=== PATIENT | female | born 1930 | race Caucasian/White ===

== ENCOUNTER 2017-03-11 06:24 | Inpatient (IN) | payer MEDICARE ==
[~2017-03-11 06:24] MED LIST: Dexamethasone IV* 4 MG/ML 1 ML (4 MG) IV SLOW PU ONE; Famotidine IV* 10 MG/ML 2 ML (20 mg) IV ONE
[2017-03-11] MEDS ORDERED: Buffered Lidocaine 1% SYRIN* 5 ML/SYR SYRINGE ONE (06:29)
[2017-03-11] MEDS ORDERED: Dexamethasone IV* 4 MG/ML 1 ML (4 MG) ONE (06:29)
[2017-03-11] MEDS ORDERED: Famotidine IV* 10 MG/ML 2 ML (20 mg) ONE (06:29)
[2017-03-11] MEDS ORDERED: Clindamycin 900 MG IVPREMIX(* 900 MG/50 ML SDV IV ONE (06:29)
[2017-03-11] MEDS: Buffered Lidocaine 1% SYRIN* 5 ML/SYR SYRINGE INTRADERM ONE ×2 (06:42→06:48)
[2017-03-11] MEDS ORDERED: Bacitracin IV* 50,000 UNITS INJ ONE (07:13)
[2017-03-11] MEDS ORDERED: Thrombin 5,000 UNITS* 1 APPLIC KIT - topical use - TOPICAL ONE (07:13)
[2017-03-11] MEDS ORDERED: Lidocain 1% EPI 1:100,000 * 30 ML MDV ONE (07:13)
[2017-03-11] MEDS ORDERED: fentaNYL* 50 MCG/ML 2 ML VIAL (100 MCG VIAL) ONE ×2 (07:26→10:51)
[2017-03-11] MEDS ORDERED: Lidocaine 1% INJ* 10 MG/ML 30 ML SDV ONE (07:28)
[2017-03-11] MEDS ORDERED: KETAMINE HCL* 50 MG/ML 10 ML VIAL ONE (07:28)
[2017-03-11] MEDS ORDERED: Propofol* 10 MG/ML 20 ML BTL IV PUSH ONE (09:03)
[2017-03-11] MEDS ORDERED: Ondansetron INJ* 2 MG/ML VIAL ONE (09:03)
[2017-03-11] MEDS ORDERED: Succinylcholine* 20 MG/ML 10 ML VIAL ONE (09:03)
[2017-03-11] MEDS ORDERED: Phenylephrine IV* 40 MCG/ML 10 ML SYRINGE ONE (09:11)
[2017-03-11] MEDS ORDERED: HYDROmorphone* 1 MG/ML 1 ML SYR IV PRN (09:16)
[2017-03-11] MEDS ORDERED: fentaNYL* 50 MCG/ML 2 ML VIAL (100 MCG VIAL) IV PRN (09:16)
[2017-03-11] MEDS ORDERED: DiMENhydriNATE IV* 50 MG/ML VIAL IV PUSH PRN (09:16)
[2017-03-11] MEDS ORDERED: Ondansetron INJ* 2 MG/ML VIAL IV PRN (10:12)
[2017-03-11] MEDS ORDERED: Ketorolac INJ* 30 MG/ML 1 ML VIAL IV PRN (10:33)
[2017-03-11] MEDS ORDERED: Ketorolac INJ* 30 MG/ML 1 ML VIAL ONE (10:36)
--- NOTE | 2017-03-11 11:40 | RAD ---
HISTORY: Localization during spinal surgery COMPARISONS: MRI dated January 28, 2017 VIEWS: Portable lateral intraoperative view of the lumbar spine performed at 7:36 AM FINDINGS: A metallic probe is noted opposite of the L3 pedicle, counting from L5 as the last lumbar type vertebral body IMPRESSION: LIMITED STUDY FOR THE PURPOSES OF LOCALIZATION DURING SPINAL SURGERY
[2017-03-11] MEDS: Latanoprost 0.005%* 2.5 ml BTL BOTH EYES SCH (19:46)
[2017-03-11] MEDS: Docusate CAP* 100 MG PO SCH (19:46)
[2017-03-11] MEDS: HYDROcodone/ACETAMIN 5-325 MG* 1 TAB PO PRN (21:15)
--- NOTE | 2017-03-12 00:31 | OP ---
OPERATIVE REPORT: DATE OF OPERATION: 03/11/17 DATE OF : 34 SURGEON: Jeremy Silva MD MOLD SHAKER: GALE Cabrera ANESTHESIA: General. 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 POST-OP DIAGNOSIS: OPERATIVE PROCEDURE: Lumbar decompressive laminectomy, L3-4 with excision of synovial cyst, L3-4 on the right with microdissection. DESCRIPTION OF PROCEDURE: After satisfactory general anesthesia was obtained, the patient was place d on the operating table in the prone position with the chest supported on the Jose Francisco frame and the back slightly flexed. The lumbar region was then clipped, prepped and draped in a sterile manner fo r lumbar laminectomy and skin incision outlined from L3 to L5. This incision was infiltrated with 1 % Xylocaine with epinephrine after which it was turned down sharply to the level of the lumbar fasci a. The fascia was divided along the spinous processes of L3 and L4, and the paraspinal musculature stripped away from these posterior elements using the periosteal elevator and monopolar cautery. An intraoperative x-ray was obtained verifying localization of the L3 pedicle. Additional inferior ex posure was obtained until the L3-4 interspace could be visualized. There was no remarked bony hyper trophy of the posterior elements at this level. The decompression was carried out initially using L eksell rongeurs as well as a Midas Wilmer drill to thin out the inferior aspect of the L3 spinous proce ss and over grown facet complex as well as the superior aspect of L4. Utilizing Kerrison rongeur, t he decompression was carried out superiorly until the attachment of the ligamentum flavum was taken down. The initial decompression was done on the left side where normal dura was noted. On the righ t side, there was noted to be a large synovial cyst extending the entire length of the decompression . At this point of procedure, the operating microscope was brought into the field and the remainder of the dissection was done utilizing microdissection. Utilizing microdissection, a plane was caref ully developed between the dura and synovial cyst tissue. Multiple fragments of synovial cyst were sent for pathology. The cyst was decompressed using a combination of curettes, gentle suction, and pituitary forceps. Ultimately, the entire extent of the cyst was removed. At the conclusion of dec ompression, both L4 nerve roots were noted to be free in their course. There was the development of a very small tear along the lateral aspect of the root sleeve on the right side. A piece of Gelfoa m was placed over this area and DuraSeal tissue adhesive placed. The fascia was then reapproximated with 0 Vicryl suture tightly. A drain was placed in the space above the fascia and tunneled out tow ards the right side. The subcutaneous tissues were then reapproximated with 3-0 Vicryl suture, and the skin closed with skin clips. The estimated blood loss was 100 cc. The final sponge, padding, a nd needle counts were correct. The patient was taken to the recovery room extubated and in stable c ondition. [id number]/[facility] #: [id number]
[2017-03-12] MEDS: Levothyroxine TAB* 88 MCG TAB PO SCH (05:59)
[2017-03-12] MEDS: Acetaminophen TAB* 325 MG PO PRN ×3 (07:25→19:39)
[2017-03-12] MEDS: Spironolactone TAB* 25 MG PO SCH (07:26)
[2017-03-12] MEDS: Docusate CAP* 100 MG PO SCH ×2 (07:26→20:54)
[2017-03-12] MEDS: Lisinopril TAB* 5 MG PO SCH (07:28)
--- NOTE | 2017-03-12 07:39 | PN ---
Progress Note - Progress Note SOAP: Subjective: []POD # 1 Pre op leg pain relieved No complaints of headache Moderate incisional pain Objective: []Dressing dry Neuro intact Assessment: []Satis post op course Plan: []Cont to monitor drain output
[2017-03-12] MEDS: HYDROcodone/ACETAMIN 5-325 MG* 1 TAB PO PRN ×2 (07:41→13:59)
[2017-03-12] MEDS: Latanoprost 0.005%* 2.5 ml BTL BOTH EYES SCH (20:54)
[2017-03-13] MEDS: HYDROcodone/ACETAMIN 5-325 MG* 1 TAB PO PRN ×2 (01:10→07:41)
[2017-03-13] MEDS: Acetaminophen TAB* 325 MG PO PRN ×2 (01:11→07:41)
[2017-03-13] MEDS: Levothyroxine TAB* 88 MCG TAB PO SCH (05:36)
--- NOTE | 2017-03-13 07:52 | PN ---
Progress Note - Progress Note SOAP: Subjective: [S/p decompressive lumbar lamminectomy and excision of synovial cyst L3-4. POD #2. Feeling well this morning, low back incisional pain improving. Pre-op lower extremity symptoms improving. Ambulating independently. Eating and drinking without difficulty. Denies lower extremity numbness, and tingling. No headache. ] Objective: [ Vital Signs: Temp Pulse Resp BP Pulse Ox 98.2 F 77 18 97/39 98 03/13/17 04:13 03/13/17 04:13 03/13/17 07:45 03/13/17 04:13 03/13/17 07:45 General: Alert and oriented. No distress. Neuro: Motor and sensory intact. Extremities: Full ROM Incision: Intact with annika. No swelling or infection. MELVA drain removed today. ] Assessment: [Satisfactory post-op] Plan: [1. Discharge home today. 2. Discharge instructions discussed with the patient. ]
[2017-03-13 09:03] VITALS: BP 107/41
[2017-03-13] MEDS: Docusate CAP* 100 MG PO SCH (09:06)
[2017-03-13] MEDS: Lisinopril TAB* 5 MG PO SCH (09:06)
[2017-03-13] MEDS: Spironolactone TAB* 25 MG PO SCH (09:06)
--- NOTE | 2017-03-15 05:37 | DS ---
DISCHARGE SUMMARY: DATE OF ADMISSION: 03/11/17 DATE OF DISCHARGE: 03/13/17 DISCHARGE DIAGNOSES: 1. Lumbar spinal stenosis and synovial cyst, L3-4. 2. Hypertension. 3. History of mitral valve repair, 2011. 4. Hypothyroidism. SPECIAL PROCEDURE: Decompressive lumbar laminectomy with synovial cyst excision, L3-4. HOSPITAL COURSE: This 86-year-old female was seen in the office with lumbar radiculopathy consisten t with stenosis and presence of synovial cyst at L3-4. She failed to improve with several months of conservative treatment and admitted at this time for elective surgical treatment. On the day of ad mission, she was taken to surgery, where under general anesthesia a decompressive lumbar laminectomy with excision of synovial cyst at L3-4 operation was carried out. Postoperatively, she was feeling well and she was ambulating independently. She was eating, drinking, and voiding without difficult y. The pain is well controlled with oral pain medications. MELVA wound drain was removed on postop da y #2. She was discharged home on the second postoperative day to the care of the family. The preop erative symptoms in the bilateral lower extremities were improving. DISCHARGE INSTRUCTIONS: Including wound care and activity level were discussed with the patient and provided. She will be seen in the office in 7 to 10 days for followup and staple removal. DISCHARGE MEDICATIONS: Hydrocodone/acetaminophen 5/325 mg 2 tabs by mouth every 4 hours as needed f or pain. GALE MORALES [id number]/[facility] #: [id number]
== END 2017-03-13 10:33 | disposition home or self-care (01) | DRG 520 ==
LOC: OR 06:24 → SSU 07:39 → OBSVTOIN 03-12 07:39
PROVIDERS: ADMIT Neurological Surgery; ATTEND Neurological Surgery
PROC: 00BY0ZZ Excision of Lumbar Spinal Cord, Open Approach (ICD-10-PCS; 2017-03-11)
PROC: 01NB0ZZ Release Lumbar Nerve, Open Approach (ICD-10-PCS; principal; 2017-03-11 07:45)
DX: M48.06 Spinal stenosis, lumbar region (principal); I27.2 Other secondary pulmonary hypertension; I34.0 Nonrheumatic mitral (valve) insufficiency; M54.16 Radiculopathy, lumbar region; M81.0 Age-related osteoporosis without current pathological fracture; M16.10 Unilateral primary osteoarthritis, unspecified hip; I10 Essential (primary) hypertension; M71.38 Other bursal cyst, other site; E03.9 Hypothyroidism, unspecified; H40.9 Unspecified glaucoma; I07.1 Rheumatic tricuspid insufficiency; S34.21XA Injury of nerve root of lumbar spine, initial encounter; X58.XXXA Exposure to other specified factors, initial encounter; Y92.234 Operating room of hospital as the place of occurrence of the external cause; I37.1 Nonrheumatic pulmonary valve insufficiency; Z82.49 Family history of ischemic heart disease and other diseases of the circulatory system; Z88.0 Allergy status to penicillin; Z87.440 Personal history of urinary (tract) infections; Z98.49 Cataract extraction status, unspecified eye; Z85.828 Personal history of other malignant neoplasm of skin; Z90.710 Acquired absence of both cervix and uterus
CPT/HCPCS: 72100; 88304; A9270-GY; G0378; J0330; J1100; J1885; J2001; J2405; J2704; J3010

== ENCOUNTER 2022-07-22 18:15 | Inpatient (IN) ==
[2022-07-22] MEDS ORDERED: Ondansetron 4 mg VIAL 2 MG/ML 2 ml VIAL IV ONE (18:58)
[2022-07-22 19:08] LABS: ABS Lymphocytes 0.9 10^3/ul (1.0-4.8); ABS Monocytes 0.9 10^3/ul (0-0.8); ABS Neutrophils 10.6 10^3/ul (1.5-7.7); Eosinophil % 0.3 %; Hematocrit 36 % (35-47); Hemoglobin 11.7 g/dL (12.0-16.0); Lymphocyte % 6.9 %; Mean Corpuscular HGB Conc 33 g/dL (31-36); Mean Corpuscular Hemoglobin 32 pg (27-31); Mean Corpuscular Volume 96 fL (80-97); Mean Platelet Volume 8.6 fL (7.4-10.4); Platelet Count 197 10^3/uL (150-450); Red Blood Count 3.72 10^6 /uL (3.70-4.87); Red Cell Distribution Width 14 % (10-15); White Blood Count 12.5 10^3/uL (3.5-10.8)
[2022-07-22 19:26] LABS: ALT 17 U/L (7-52); Albumin/Globulin Ratio 1.4 (1-3); Alkaline Phosphatase 58 U/L (35-149); Blood Urea Nitrogen 28 mg/dL (6-24); CO2 Carbon Dioxide 25 mmol/L (22-32); Chloride 100 mmol/L (101-111); Globulin 2.8 g/dL (2-4); Glucose 134 mg/dL (70-100); Sodium 133 mmol/L (135-145); Total Protein 6.8 g/dL (6.4-8.9); eGFR CKD-EPI 59.5 (>60)
[2022-07-22 19:28] LABS: Anion Gap 8 mmol/L (2-11)
[2022-07-22] MEDS ORDERED: Ondansetron 4 mg VIAL 2 MG/ML 2 ml VIAL IV PRN (21:14)
[2022-07-22] MEDS ORDERED: Heparin 5000 UNITS/ML 1 mL VIAL SUBCUT ONE (21:16)
[2022-07-22] MEDS: Acetaminophen IV 1 GM/100ML 1,000 MG/100 ML BAG IV SCH (22:04)
[2022-07-23] MEDS ORDERED: Metoclopramide 5 MG/ML VIAL (10 mg) IV PRN (00:17)
[2022-07-23 01:21] LABS: Urine Appearance Cloudy; Urine Bilirubin Negative (Negative); Urine Blood 1+ (Negative); Urine Color Yellow; Urine Glucose Negative (Negative); Urine Ketones 1+ (Negative); Urine Nitrite Negative (Negative); Urine Protein 1+(30 mg/dL) (Negative); Urine Specific Gravity 1.018 (1.002-1.030); Urine Urobilinogen Negative (Negative)
[2022-07-23 01:23] LABS: Urine Bacteria Absent (Absent); Urine Red Blood Cell 3+(>10/hpf) (Absent); Urine White Blood Cell Trace(0-5/hpf) (Absent)
[2022-07-23] MEDS: Acetaminophen IV 1 GM/100ML 1,000 MG/100 ML BAG IV SCH ×4 (02:55→23:07)
[2022-07-23 04:59] LABS: ABS Lymphocytes 0.8 10^3/ul (1.0-4.8); ABS Monocytes 0.9 10^3/ul (0-0.8); ABS Neutrophils 7.7 10^3/ul (1.5-7.7); Eosinophil % 0.1 %; Hematocrit 33 % (35-47); Hemoglobin 10.6 g/dL (12.0-16.0); Lymphocyte % 8.7 %; Mean Corpuscular HGB Conc 32 g/dL (31-36); Mean Corpuscular Hemoglobin 31 pg (27-31); Mean Corpuscular Volume 96 fL (80-97); Mean Platelet Volume 7.9 fL (7.4-10.4); Platelet Count 163 10^3/uL (150-450); Red Blood Count 3.41 10^6 /uL (3.70-4.87); Red Cell Distribution Width 14 % (10-15); White Blood Count 9.5 10^3/uL (3.5-10.8)
[2022-07-23 05:05] LABS: INR 1.05 (0.89-1.11)
[2022-07-23 05:37] LABS: Calcium 8.2 mg/dL (8.6-10.3); Magnesium 1.9 mg/dL (1.9-2.7); Potassium 4.9 mmol/L (3.5-5.0)
[2022-07-23 05:42] LABS: eGFR CKD-EPI 58.8 (>60)
[2022-07-23] MEDS: Latanoprost 0.005% 2.5 ml BTL BOTH EYES SCH ×2 (06:44→23:08)
[2022-07-23] MEDS ORDERED: Buffered Lidocaine 1% SYRIN 1 ml INTRADERM ONE (08:28)
[2022-07-23] MEDS ORDERED: Polyethylene Glycol 3350 17 GM PACKET PO PRN (11:32)
[2022-07-23] MEDS: Lactated Ringers 1000 ml BAG 1,000 ML IV SCH (11:34)
[2022-07-23] MEDS ORDERED: ceFAZolin 2 GM in NS PREMIX 2 GM/100 ML BAG IVPB ONE (15:32)
[2022-07-23] MEDS ORDERED: ROPIVACAINE 5 MG/ML 30 ML BTL (0.5%) ONE (16:13)
[2022-07-23] MEDS ORDERED: fentaNYL 100 mcg/2 ml 50 MCG/ML VIAL ONE (16:33)
[2022-07-23] MEDS ORDERED: Phenylephrine IV 10 MG/ML 1 ml VIAL ONE (16:38)
[2022-07-23] MEDS ORDERED: Propofol 10 MG/ML 20 ML BTL ONE (16:41)
[2022-07-23] MEDS ORDERED: Lidocaine 2% PF 5 ML VIAL ONE (16:43)
[2022-07-23] MEDS ORDERED: Ketamine HCL 50 mg/ml 10 ml VIAL (500 MG) ONE (17:08)
[2022-07-23] MEDS ORDERED: Naloxone 0.4 mg VIAL 0.4 mg/ml 1 ml VIAL IV PRN (19:36)
[2022-07-23] MEDS ORDERED: fentaNYL 100 mcg/2 ml 50 MCG/ML VIAL IV PRN (19:36)
[2022-07-23] MEDS ORDERED: HYDROcodone/ACETAMIN 5/325 mg TAB PO PRN (19:36)
[2022-07-23] MEDS ORDERED: Ondansetron 4 mg VIAL 2 MG/ML 2 ml VIAL ONE (19:39)
[2022-07-23] MEDS: Senna TAB 8.6 mg TAB PO PRN (22:07)
[2022-07-24] MEDS: Clindamycin 600 MG/D5W BAG IV SCH ×3 (01:50→17:24)
[2022-07-24] MEDS: Acetaminophen IV 1 GM/100ML 1,000 MG/100 ML BAG IV SCH (03:25)
[2022-07-24] MEDS: Lactated Ringers 1000 ml BAG 1,000 ML IV SCH ×2 (05:18→14:25)
[2022-07-24] MEDS ORDERED: Lactated Ringers 1000 ml BAG 1,000 ML IV ONE ×2 (08:09→09:56)
[2022-07-24 09:09] LABS: Hematocrit 25 % (35-47); Hemoglobin 7.9 g/dL (12.0-16.0)
[2022-07-24] MEDS ORDERED: Iodixanol (CONTRAST) 320 MG/ML 100 ML SDV IV ONE (11:41)
[2022-07-24 14:24] LABS: Hematocrit 22 % (35-47)
[2022-07-24 20:10] LABS: Hematocrit 22 % (35-47); Hemoglobin 7.3 g/dL (12.0-16.0)
[2022-07-24] MEDS: Latanoprost 0.005% 2.5 ml BTL BOTH EYES SCH (20:42)
[2022-07-24] MEDS: Senna TAB 8.6 mg TAB PO PRN (20:44)
[2022-07-25] MEDS: Lactated Ringers 1000 ml BAG 1,000 ML IV SCH ×2 (01:53→12:31)
[2022-07-25 06:12] LABS: Hematocrit 22 % (35-47); Hemoglobin 7.2 g/dL (12.0-16.0); Mean Corpuscular HGB Conc 33 g/dL (31-36); Mean Corpuscular Hemoglobin 31 pg (27-31); Mean Corpuscular Volume 95 fL (80-97); Mean Platelet Volume 8.1 fL (7.4-10.4); Platelet Count 132 10^3/uL (150-450); Red Blood Count 2.29 10^6 /uL (3.70-4.87); Red Cell Distribution Width 14 % (10-15); White Blood Count 11.5 10^3/uL (3.5-10.8)
[2022-07-25 06:53] LABS: Calcium 7.5 mg/dL (8.6-10.3); Potassium 4.9 mmol/L (3.5-5.0); eGFR CKD-EPI 62.8 (>60)
[2022-07-25] MEDS ORDERED: Glycerin ADULT 2.4 gm SUPP PR ONE (11:24)
[2022-07-25] MEDS ORDERED: Metoclopramide 5 MG/ML VIAL (10 mg) IV PRN (11:28)
[2022-07-25 12:04] LABS: ABS Lymphocytes 1.1 10^3/ul (1.0-4.8); ABS Monocytes 1.9 10^3/ul (0-0.8); ABS Neutrophils 8.5 10^3/ul (1.5-7.7); Eosinophil % 0.1 %; Lymphocyte % 9.8 %
[2022-07-25 17:01] LABS: Hematocrit 20 % (35-47); Hemoglobin 6.5 g/dL (12.0-16.0)
[2022-07-25] MEDS ORDERED: Magnesium CITRATE LIQ 300 ML BTL PO ONE (17:15)
[2022-07-25] MEDS ORDERED: Magnesium Hydroxide LIQ 30 ML UDC PO ONE (18:58)
[2022-07-25] MEDS ORDERED: Senna TAB 8.6 mg TAB PO SCH (21:00)
[2022-07-25 21:58] LABS: Hematocrit 23 % (35-47); Hemoglobin 7.5 g/dL (12.0-16.0)
[2022-07-25] MEDS: Latanoprost 0.005% 2.5 ml BTL BOTH EYES SCH (22:06)
[2022-07-26 01:19] LABS: Urine Appearance Clear; Urine Bilirubin Negative (Negative); Urine Blood Negative (Negative); Urine Color Amber; Urine Glucose Negative (Negative); Urine Ketones Negative (Negative); Urine Nitrite Negative (Negative); Urine Protein 1+(30 mg/dL) (Negative); Urine Specific Gravity 1.033 (1.002-1.030); Urine Urobilinogen Negative (Negative)
[2022-07-26 01:25] LABS: Urine Bacteria Absent (Absent); Urine Red Blood Cell Trace(0-2/hpf) (Absent); Urine Squamous Epithelial Cell Present (Absent); Urine White Blood Cell 1+(6-10/hpf) (Absent)
[2022-07-26] MEDS: Lactated Ringers 1000 ml BAG 1,000 ML IV SCH (03:20)
[2022-07-26 08:12] LABS: Hematocrit 21 % (35-47); Hemoglobin 7.2 g/dL (12.0-16.0); Mean Corpuscular HGB Conc 34 g/dL (31-36); Mean Corpuscular Hemoglobin 31 pg (27-31); Mean Corpuscular Volume 92 fL (80-97); Mean Platelet Volume 8.2 fL (7.4-10.4); Platelet Count 133 10^3/uL (150-450); Red Blood Count 2.33 10^6 /uL (3.70-4.87); Red Cell Distribution Width 15 % (10-15); White Blood Count 9.6 10^3/uL (3.5-10.8)
[2022-07-26 08:55] LABS: Calcium 7.1 mg/dL (8.6-10.3); eGFR CKD-EPI 57.3 (>60)
[2022-07-26] MEDS ORDERED: Polyethylene Glycol 3350 17 GM PACKET PO SCH (09:00)
[2022-07-26 09:04] LABS: Potassium 5.3 mmol/L (3.5-5.0)
[2022-07-26 12:42] VITALS: BP 107/66
[2022-07-26] MEDS ORDERED: Sulfur Hexaflouride MICROSPHR 25 MG VIAL ONE (14:59)
[2022-07-26] MEDS ORDERED: SODIUM ZIRCONIUM CYCLOSILICATE 10 GM PACKET PO SCH (15:00)
== END 2022-07-26 17:15 | DRG 521 ==
LOC: ED 18:15 → EDHOLD 21:47 → SSU 07-23 20:03
PROVIDERS: ADMIT Internal Medicine; ATTEND Internal Medicine

== ENCOUNTER 2022-07-26 15:26 | Inpatient (IN) ==
[2022-07-26] MEDS ORDERED: Senna TAB 8.6 mg TAB PO PRN (18:21)
[2022-07-26] MEDS ORDERED: SODIUM ZIRCONIUM CYCLOSILICATE 5 GM PACKET PO ONE (20:00)
[2022-07-26] MEDS: Latanoprost 0.005% 2.5 ml BTL BOTH EYES SCH (21:53)
[2022-07-27 09:39] LABS: ABS Eosinophils 0.2 10^3/ul (0-0.6); ABS Lymphocytes 0.8 10^3/ul (1.0-4.8); ABS Monocytes 1.1 10^3/ul (0-0.8); ABS Neutrophils 5.3 10^3/ul (1.5-7.7); Eosinophil % 2.5 %; Hematocrit 22 % (35-47); Hemoglobin 7.5 g/dL (12.0-16.0); Lymphocyte % 11.1 %; Mean Corpuscular HGB Conc 35 g/dL (31-36); Mean Corpuscular Hemoglobin 32 pg (27-31); Mean Corpuscular Volume 93 fL (80-97); Mean Platelet Volume 7.8 fL (7.4-10.4); Platelet Count 186 10^3/uL (150-450); Red Blood Count 2.31 10^6 /uL (3.70-4.87); Red Cell Distribution Width 15 % (10-15); White Blood Count 7.4 10^3/uL (3.5-10.8)
[2022-07-27 10:30] LABS: Calcium 7.3 mg/dL (8.6-10.3); Potassium 4.4 mmol/L (3.5-5.0); eGFR CKD-EPI 65.4 (>60)
[2022-07-27] MEDS: Benzocaine/Menthol LOZ PO PRN (10:35)
[2022-07-27] MEDS: Magnesium Hydroxide LIQ 30 ML UDC PO PRN (10:35)
[2022-07-27] MEDS ORDERED: Calcium Carb (TUMS) 500 mg CHEW TAB PO ONE (16:15)
[2022-07-27] MEDS: Latanoprost 0.005% 2.5 ml BTL BOTH EYES SCH (20:15)
[2022-07-27] MEDS: Calcium Carb (TUMS) 500 mg CHEW TAB PO PRN (20:15)
[2022-07-27] MEDS: Senna TAB 8.6 mg TAB PO SCH (20:15)
[2022-07-28] MEDS: Polyethylene Glycol 3350 17 GM PACKET PO SCH (09:42)
[2022-07-28] MEDS: Calcium Carb (TUMS) 500 mg CHEW TAB PO PRN ×4 (09:45→23:42)
[2022-07-28] MEDS: Magnesium Hydroxide LIQ 30 ML UDC PO PRN (16:29)
[2022-07-28] MEDS: Latanoprost 0.005% 2.5 ml BTL BOTH EYES SCH (19:57)
[2022-07-28] MEDS: Senna TAB 8.6 mg TAB PO SCH (19:58)
[2022-07-29] MEDS: Calcium Carb (TUMS) 500 mg CHEW TAB PO PRN (04:14)
[2022-07-29 06:42] LABS: ABS Eosinophils 0.1 10^3/ul (0-0.6); ABS Lymphocytes 0.9 10^3/ul (1.0-4.8); ABS Monocytes 1.4 10^3/ul (0-0.8); ABS Neutrophils 6.3 10^3/ul (1.5-7.7); Eosinophil % 0.8 %; Hematocrit 20 % (35-47); Hemoglobin 6.7 g/dL (12.0-16.0); Lymphocyte % 10.5 %; Mean Corpuscular HGB Conc 33 g/dL (31-36); Mean Corpuscular Hemoglobin 31 pg (27-31); Mean Corpuscular Volume 94 fL (80-97); Mean Platelet Volume 7.1 fL (7.4-10.4); Platelet Count 254 10^3/uL (150-450); Red Blood Count 2.16 10^6 /uL (3.70-4.87); Red Cell Distribution Width 14 % (10-15); White Blood Count 8.8 10^3/uL (3.5-10.8)
[2022-07-29 07:12] LABS: Albumin 2.9 g/dL (3.2-5.2); Albumin/Globulin Ratio 1.3 (1-3); Calcium 7.6 mg/dL (8.6-10.3); Globulin 2.2 g/dL (2-4); Potassium 4.9 mmol/L (3.5-5.0); Total Bilirubin 1.5 mg/dL (0.2-1.0); Total Protein 5.1 g/dL (6.4-8.9); eGFR CKD-EPI 83.5 (>60)
[2022-07-29] MEDS: Polyethylene Glycol 3350 17 GM PACKET PO SCH (09:45)
[2022-07-29] MEDS: Senna TAB 8.6 mg TAB PO SCH (21:58)
[2022-07-29] MEDS: Latanoprost 0.005% 2.5 ml BTL BOTH EYES SCH (22:09)
[2022-07-30] MEDS: Calcium Carb (TUMS) 500 mg CHEW TAB PO PRN (03:00)
[2022-07-30] MEDS: Polyethylene Glycol 3350 17 GM PACKET PO SCH (08:06)
[2022-07-30] MEDS: Senna TAB 8.6 mg TAB PO SCH (20:53)
[2022-07-30] MEDS: Latanoprost 0.005% 2.5 ml BTL BOTH EYES SCH (20:53)
[2022-07-31 07:18] LABS: ABS Basophils 0.1 10^3/ul (0-0.2); ABS Eosinophils 0.2 10^3/ul (0-0.6); ABS Monocytes 1.4 10^3/ul (0-0.8); Eosinophil % 1.8 %; Hematocrit 23 % (35-47); Hemoglobin 7.6 g/dL (12.0-16.0); Lymphocyte % 8.7 %; Mean Corpuscular HGB Conc 33 g/dL (31-36); Mean Corpuscular Hemoglobin 31 pg (27-31); Mean Corpuscular Volume 94 fL (80-97); Mean Platelet Volume 6.7 fL (7.4-10.4); Platelet Count 334 10^3/uL (150-450); Red Blood Count 2.48 10^6 /uL (3.70-4.87); Red Cell Distribution Width 15 % (10-15); White Blood Count 11.7 10^3/uL (3.5-10.8)
[2022-07-31] MEDS: Polyethylene Glycol 3350 17 GM PACKET PO SCH (08:39)
[2022-07-31 09:37] LABS: ALT 22 U/L (7-52); AST 27 U/L (13-39); Albumin 2.9 g/dL (3.2-5.2); Albumin/Globulin Ratio 1.2 (1-3); Alkaline Phosphatase 65 U/L (35-149); Anion Gap 5 mmol/L (2-11); Blood Urea Nitrogen 17 mg/dL (6-24); CO2 Carbon Dioxide 26 mmol/L (22-32); Calcium 7.3 mg/dL (8.6-10.3); Chloride 98 mmol/L (101-111); Globulin 2.4 g/dL (2-4); Glucose 99 mg/dL (70-100); Potassium 4.3 mmol/L (3.5-5.0); Sodium 129 mmol/L (135-145); Total Protein 5.3 g/dL (6.4-8.9); eGFR CKD-EPI 83.5 (>60)
[2022-07-31] MEDS: Enoxaparin 30 MG/0.3 ML SYR SUBCUT SCH (10:09)
[2022-07-31 10:19] LABS: Indirect Bilirubin 1.3 mg/dL (0.3-1.0)
[2022-07-31 13:29] LABS: Urine Appearance Turbid; Urine Bilirubin Negative (Negative); Urine Blood 1+ (Negative); Urine Color Amber; Urine Glucose Negative (Negative); Urine Ketones Negative (Negative); Urine Nitrite Positive (Negative); Urine Protein 1+(30 mg/dL) (Negative); Urine Specific Gravity 1.009 (1.002-1.030); Urine Urobilinogen Negative (Negative)
[2022-07-31 13:37] LABS: Urine Bacteria 1+ (Absent); Urine Red Blood Cell 1+(3-5/hpf) (Absent); Urine Transitional Epithelial Present (Absent); Urine White Blood Cell 3+(>20/hpf) (Absent)
[2022-07-31] MEDS ORDERED: Furosemide 20 mg/2 ml IV VIAL IV SLOW PU ONE ×2 (14:13→14:19)
[2022-07-31] MEDS: cefTRIAXone 1 gm/50 mL D5W 1 GM/50 ML BAG IV SCH (16:15)
[2022-07-31 16:17] LABS: Corrected Retic Count 2.2 % (0.5-1.5); Hematocrit for Retic CNT 24 % (35-47); Immature Retic Fraction 0.61
[2022-07-31 17:24] LABS: Urine Osmo 275 mOsm/kg (150-1150)
[2022-07-31 18:16] LABS: % Iron Saturation 15 % (15-55); Iron 36 ug/dL (50-212); Total Iron Binding Capacity 244 mcg/dL (250-450); Transferrin 174 mg/dL (203-362); Unsaturated Iron Binding 208 ug/dL
[2022-07-31 18:35] LABS: Folate > 20.00 ng/mL (5.90-24.80)
[2022-07-31 18:36] LABS: Vitamin B12 1414 pg/mL (180-914)
[2022-07-31] MEDS: Senna TAB 8.6 mg TAB PO SCH (20:47)
[2022-07-31] MEDS: Latanoprost 0.005% 2.5 ml BTL BOTH EYES SCH (20:53)
[2022-08-01 06:11] LABS: ABS Eosinophils 0.1 10^3/ul (0-0.6); ABS Monocytes 1.4 10^3/ul (0-0.8); Eosinophil % 1.1 %; Hematocrit 22 % (35-47); Hemoglobin 7.2 g/dL (12.0-16.0); Lymphocyte % 8.6 %; Mean Corpuscular HGB Conc 32 g/dL (31-36); Mean Corpuscular Hemoglobin 30 pg (27-31); Mean Corpuscular Volume 93 fL (80-97); Mean Platelet Volume 6.4 fL (7.4-10.4); Platelet Count 365 10^3/uL (150-450); Red Blood Count 2.39 10^6 /uL (3.70-4.87); Red Cell Distribution Width 15 % (10-15); White Blood Count 11.6 10^3/uL (3.5-10.8)
[2022-08-01 06:51] LABS: Potassium 4.4 mmol/L (3.5-5.0); eGFR CKD-EPI 85.7 (>60)
[2022-08-01 07:06] LABS: TSH Ultra Thyroid Stim Horm 5.37 mcIU/mL (0.34-5.60)
[2022-08-01 08:39] LABS: Direct Bilirubin 0.3 mg/dL (0.03-0.18); Indirect Bilirubin 0.9 mg/dL (0.3-1.0); Total Bilirubin 1.2 mg/dL (0.2-1.0)
[2022-08-01] MEDS: Polyethylene Glycol 3350 17 GM PACKET PO SCH (09:03)
[2022-08-01] MEDS: Enoxaparin 30 MG/0.3 ML SYR SUBCUT SCH (09:05)
[2022-08-01] MEDS: Calcium/Vitamin D TAB 250/125 TAB PO SCH ×2 (09:40→19:54)
[2022-08-01] MEDS ORDERED: Dextran 70/Hypromellose Tears Eye Drops 15 ml BTL (for Artificials Tears) BOTH EYES PRN (13:25)
[2022-08-01] MEDS: Iron Sucrose 200 MG in NS 0.9% 100 ml BAG 100 ML IVPB SCH (14:28)
[2022-08-01] MEDS: Benzocaine/Menthol LOZ PO PRN (15:13)
[2022-08-01] MEDS: cefTRIAXone 1 gm/50 mL D5W 1 GM/50 ML BAG IV SCH (15:55)
[2022-08-01] MEDS ORDERED: SYSTANE ULTRA EYE BOTH EYES PRN (16:00)
[2022-08-01] MEDS ORDERED: Furosemide 20 mg/2 ml IV VIAL IV SLOW PU ONE (16:18)
[2022-08-01] MEDS: Senna TAB 8.6 mg TAB PO SCH (19:54)
[2022-08-01] MEDS: Latanoprost 0.005% 2.5 ml BTL BOTH EYES SCH (19:55)
[2022-08-02 06:47] LABS: ABS Basophils 0.1 10^3/ul (0-0.2); ABS Eosinophils 0.2 10^3/ul (0-0.6); ABS Monocytes 1.3 10^3/ul (0-0.8); ABS Neutrophils 6.4 10^3/ul (1.5-7.7); Eosinophil % 2.3 %; Hematocrit 22 % (35-47); Hemoglobin 7.4 g/dL (12.0-16.0); Lymphocyte % 11.1 %; Mean Corpuscular HGB Conc 34 g/dL (31-36); Mean Corpuscular Hemoglobin 32 pg (27-31); Mean Corpuscular Volume 93 fL (80-97); Mean Platelet Volume 6.2 fL (7.4-10.4); Nucleated Red Blood Cells % 0.1; Platelet Count 400 10^3/uL (150-450); Red Blood Count 2.33 10^6 /uL (3.70-4.87); Red Cell Distribution Width 15 % (10-15)
[2022-08-02] MEDS: Calcium/Vitamin D TAB 250/125 TAB PO SCH ×2 (07:35→21:01)
[2022-08-02] MEDS: Polyethylene Glycol 3350 17 GM PACKET PO SCH (07:35)
[2022-08-02 07:44] LABS: Calcium 7.2 mg/dL (8.6-10.3); Potassium 4.5 mmol/L (3.5-5.0); eGFR CKD-EPI 83.8 (>60)
[2022-08-02] MEDS: Enoxaparin 30 MG/0.3 ML SYR SUBCUT SCH (09:15)
[2022-08-02] MEDS: Iron Sucrose 200 MG in NS 0.9% 100 ml BAG 100 ML IVPB SCH (10:46)
[2022-08-02] MEDS: cefTRIAXone 1 gm/50 mL D5W 1 GM/50 ML BAG IV SCH (16:37)
[2022-08-02] MEDS: Magnesium Hydroxide LIQ 30 ML UDC PO PRN (19:31)
[2022-08-02] MEDS: Latanoprost 0.005% 2.5 ml BTL BOTH EYES SCH (21:01)
[2022-08-02] MEDS: Senna TAB 8.6 mg TAB PO SCH (21:01)
[2022-08-03] MEDS: Polyethylene Glycol 3350 17 GM PACKET PO SCH ×3 (08:11→21:00)
[2022-08-03] MEDS: Calcium/Vitamin D TAB 250/125 TAB PO SCH ×2 (08:12→21:03)
[2022-08-03] MEDS ORDERED: Furosemide 20 mg/2 ml IV VIAL IV ONE (08:56)
[2022-08-03] MEDS: Iron Sucrose 200 MG in NS 0.9% 100 ml BAG 100 ML IVPB SCH (09:06)
[2022-08-03] MEDS: Nitrofurantoin (monohydrate/macrocrystals) 100 mg CAP PO SCH ×2 (09:34→21:03)
[2022-08-03] MEDS: Enoxaparin 30 MG/0.3 ML SYR SUBCUT SCH (10:44)
[2022-08-03] MEDS: Senna TAB 8.6 mg TAB PO SCH (21:02)
[2022-08-03] MEDS: Latanoprost 0.005% 2.5 ml BTL BOTH EYES SCH (21:04)
[2022-08-04] MEDS: Nitrofurantoin (monohydrate/macrocrystals) 100 mg CAP PO SCH ×2 (07:55→20:22)
[2022-08-04] MEDS: Calcium/Vitamin D TAB 250/125 TAB PO SCH ×2 (07:55→20:22)
[2022-08-04] MEDS: Iron Sucrose 200 MG in NS 0.9% 100 ml BAG 100 ML IVPB SCH (09:15)
[2022-08-04] MEDS: Polyethylene Glycol 3350 17 GM PACKET PO SCH ×2 (09:54→20:18)
[2022-08-04] MEDS: Enoxaparin 30 MG/0.3 ML SYR SUBCUT SCH (11:21)
[2022-08-04] MEDS: Senna TAB 8.6 mg TAB PO SCH (20:21)
[2022-08-04] MEDS: Latanoprost 0.005% 2.5 ml BTL BOTH EYES SCH (20:24)
[2022-08-05 07:17] LABS: Hematocrit 22 % (35-47); Hemoglobin 7.4 g/dL (12.0-16.0); Mean Corpuscular HGB Conc 33 g/dL (31-36); Mean Corpuscular Hemoglobin 32 pg (27-31); Mean Corpuscular Volume 95 fL (80-97); Mean Platelet Volume 6.3 fL (7.4-10.4); Platelet Count 452 10^3/uL (150-450); Red Blood Count 2.34 10^6 /uL (3.70-4.87); Red Cell Distribution Width 16 % (10-15); White Blood Count 9.2 10^3/uL (3.5-10.8)
[2022-08-05] MEDS: Calcium/Vitamin D TAB 250/125 TAB PO SCH ×2 (07:26→20:03)
[2022-08-05] MEDS: Polyethylene Glycol 3350 17 GM PACKET PO SCH ×2 (07:26→20:03)
[2022-08-05] MEDS: Iron Sucrose 200 MG in NS 0.9% 100 ml BAG 100 ML IVPB SCH (07:26)
[2022-08-05 07:33] LABS: Albumin 2.8 g/dL (3.2-5.2); Albumin/Globulin Ratio 1.2 (1-3); Calcium 7.8 mg/dL (8.6-10.3); Globulin 2.4 g/dL (2-4); Potassium 4.9 mmol/L (3.5-5.0); Total Bilirubin 0.9 mg/dL (0.2-1.0); Total Protein 5.2 g/dL (6.4-8.9); eGFR CKD-EPI 83.2 (>60)
[2022-08-05 08:35] LABS: ABS Basophils 0.1 10^3/ul (0-0.2); ABS Eosinophils 0.2 10^3/ul (0-0.6); ABS Monocytes 1.4 10^3/ul (0-0.8); ABS Neutrophils 6.5 10^3/ul (1.5-7.7); Eosinophil % 2.5 %; Lymphocyte % 10.6 %
[2022-08-05] MEDS: Enoxaparin 30 MG/0.3 ML SYR SUBCUT SCH (10:10)
[2022-08-05] MEDS: Senna TAB 8.6 mg TAB PO SCH (20:03)
[2022-08-05] MEDS: Latanoprost 0.005% 2.5 ml BTL BOTH EYES SCH (20:04)
[2022-08-06] MEDS: Calcium/Vitamin D TAB 250/125 TAB PO SCH ×2 (09:09→20:17)
[2022-08-06] MEDS: Polyethylene Glycol 3350 17 GM PACKET PO SCH ×2 (09:10→20:18)
[2022-08-06] MEDS: Enoxaparin 30 MG/0.3 ML SYR SUBCUT SCH (09:11)
[2022-08-06] MEDS: Senna TAB 8.6 mg TAB PO SCH (20:17)
[2022-08-06] MEDS: Latanoprost 0.005% 2.5 ml BTL BOTH EYES SCH (20:17)
[2022-08-07] MEDS: Calcium/Vitamin D TAB 250/125 TAB PO SCH ×2 (08:40→20:52)
[2022-08-07] MEDS: Polyethylene Glycol 3350 17 GM PACKET PO SCH ×2 (08:42→20:53)
[2022-08-07] MEDS: Enoxaparin 30 MG/0.3 ML SYR SUBCUT SCH (11:24)
[2022-08-07] MEDS: Senna TAB 8.6 mg TAB PO SCH (20:53)
[2022-08-07] MEDS: Latanoprost 0.005% 2.5 ml BTL BOTH EYES SCH (20:53)
[2022-08-08] MEDS: Calcium/Vitamin D TAB 250/125 TAB PO SCH ×2 (07:32→20:43)
[2022-08-08] MEDS: Polyethylene Glycol 3350 17 GM PACKET PO SCH ×2 (07:32→20:45)
[2022-08-08] MEDS: Enoxaparin 30 MG/0.3 ML SYR SUBCUT SCH (11:03)
[2022-08-08] MEDS: Latanoprost 0.005% 2.5 ml BTL BOTH EYES SCH (20:44)
[2022-08-08] MEDS: Senna TAB 8.6 mg TAB PO SCH (20:45)
[2022-08-09 06:30] VITALS: BP 127/67
[2022-08-09] MEDS: Calcium/Vitamin D TAB 250/125 TAB PO SCH (08:30)
[2022-08-09] MEDS: Polyethylene Glycol 3350 17 GM PACKET PO SCH (08:33)
[2022-08-09] MEDS: Enoxaparin 30 MG/0.3 ML SYR SUBCUT SCH (13:33)
== END 2022-08-09 16:23 | disposition home health service (06) | DRG 560 ==
LOC: PMRU 17:43
PROVIDERS: ADMIT Physical Medicine & Rehabilitation; ATTEND Physical Medicine & Rehabilitation